=== PATIENT | female | born 1965 | race African-American/Black ===

== ENCOUNTER 2017-10-27 11:20 | Emergency (ER) | payer OTHER ==
[2017-10-27] MEDS ORDERED: predniSONE 20 MG TAB ONE (13:20)
[2017-10-27] MEDS ORDERED: IPRATROPIUM BROM 0.5MG/2.5ML ONE (13:20)
[2017-10-27] MEDS ORDERED: ALBUTEROL 2.5 MG/3 ML NEB SOL ONE (13:20)
--- NOTE | 2017-10-27 14:17 | ER ---
Nurse's Notes [facility] Name: Nini Carr Age: 51 yrs Sex: Female : 1965 Arrival Date: 10/27/2017 Time: 11:30 Bed DIS1 Private MD: None, None Diagnosis: Acute bronchitis;Otitis media, unspecified, bilateral Presentation: 10/27 11:35 Presenting complaint: Patient states: Sore throat, nasal congestion, SOB that started aj last night. Transition of care: patient was not received from another setting of care. Onset of symptoms was October 27, 2017. Initial Sepsis Screen: Does the patient meet any 2 criteria? No. Patient's initial sepsis screen is negative. Does the patient have a suspected source of infection? No. Patient's initial sepsis screen is negative. Care prior to arrival: None. 11:35 Method Of Arrival: Ambulatory aj 11:35 Acuity: LIV 3 aj Triage Assessment: 11:37 General: Appears in no apparent distress. uncomfortable, Behavior is calm, cooperative, aj appropriate for age. Pain: Complains of pain in left aspect of posterior pharynx and right aspect of posterior pharynx. EENT: Reports nasal congestion nasal discharge pain when swallowing. Neuro: Level of Consciousness is awake, alert, obeys commands, Oriented to person, place, time, situation, Appropriate for age. Respiratory: Airway is patent Respiratory effort is even, unlabored, Respiratory pattern is tachypnea Breath sounds with wheezes. Derm: Skin is intact, is healthy with good turgor, Skin is pink, warm \T\ dry. normal. 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 - Social history:: Smoking status: Patient/guardian denies using tobacco. Screenin:20 Abuse screen: Denies threats or abuse. Denies injuries from another. Nutritional lk1 screening: No deficits noted. Tuberculosis screening: No symptoms or risk factors identified. Fall Risk None identified. Assessment: 13:10 General: Appears in no apparent distress. Behavior is calm, cooperative, appropriate lk1 for age. Pain: Complains of pain in chest Pain currently is 8 out of 10 on a pain scale. Neuro: Level of Consciousness is awake, alert, obeys commands, Oriented to person, place, time, situation. Cardiovascular: Heart tones S1 S2 present Capillary refill is brisk Patient's skin is warm and dry. Respiratory: Airway is patent Respiratory effort is labored, with nasal flaring, Respiratory pattern is symmetrical, tachypnea Breath sounds are coarse in mediastinum Breath sounds with wheezes bilaterally. GI: Abdomen is obese, Bowel sounds present X 4 quads. : No signs and/or symptoms were reported regarding the genitourinary system. EENT: No signs and/or symptoms were reported regarding the EENT system. Derm: No signs and/or symptoms reported regarding the dermatologic system. Musculoskeletal: No signs and/or symptoms reported regarding the musculoskeletal system. 13:45 Reassessment: Patient states feeling better. Patient states symptoms have improved. lk1 Respiratory: Airway is patent Respiratory effort is even, unlabored, Respiratory pattern is regular, symmetrical, Breath sounds are clear in mediastinum, left upper lobe, right middle lobe, left lower lobe and right lower lobe Breath sounds with wheezes in right upper lobe. Vital Signs: 11:37 BP 147 / 103; Pulse 72; Resp 23; Temp 98.0; Pulse Ox 97% on R/A; Weight 113.4 kg; aj Height 5 ft. 6 in. (167.64 cm); Pain 8/10; 13:40 BP 160 / 98; Pulse 80; Resp 20; Pulse Ox 97% on R/A; lk1 11:37 Body Mass Index 40.35 (113.40 kg, 167.64 cm) aj ED Course: 11:30 Patient arrived in ED. mr 11:30 None, None is Private Physician. mr 11:36 Triage completed. aj 11:39 Arm band placed on left wrist. Patient placed in waiting room, Patient notified of wait aj time. 13:06 Deven Milan PA is PHCP. cp 13:06 Deven Vásquez MD is Attending Physician. cp 13:18 Elma Alexis, JOLIE is Primary Nurse. lk1 14:21 Patient has correct armband on for positive identification. Bed in low position. Call lk1 light in reach. 14:39 No provider procedures requiring assistance completed. Patient did not have IV access lk1 during this emergency room visit. Administered Medications: 13:25 Drug: predniSONE 60 mg Route: PO; lk1 14:26 Follow up: Response: No adverse reaction lk1 13:27 Drug: Albuterol 2.5 mg Route: Inhalation; lk1 13:45 Follow up: Response: No adverse reaction; Marked relief of symptoms lk1 13:27 Drug: AtroVENT Aerosol 0.5 mg Route: Inhalation; lk1 13:45 Follow up: Response: No adverse reaction lk1 Outcome: 14:16 Discharge ordered by . leonides 14:39 Discharged to home ambulatory. lk1 14:39 Condition: good 14:39 Discharge instructions given to patient, Instructed on discharge instructions, follow up and referral plans. medication usage, safety practices, Demonstrated understanding of instructions, follow-up care, medications, Prescriptions given X 3. 14:39 Patient left the ED. lk1 Signatures: Virginia Neves RN RN aj Rivera, Maria mr Deven Milan, Elma Rodrigues cp, RN RN lk1 Corrections: (The following items were deleted from the chart) 11:39 11:35 Acuity: LIV 4 jazmine lucero
--- NOTE | 2017-10-27 14:17 | EDPHYS ---
Physician Documentation [facility] Name: Nini Carr Age: 51 yrs Sex: Female : 1965 Arrival Date: 10/27/2017 Time: 11:30 Bed DIS1 Private MD: None, None ED Physician Deven Vásquez HPI: 10/27 13:20 This 51 yrs old Black Female presents to ER via Ambulatory with complaints of cp Congestion, Breathing Difficulty. 13:20 The patient or guardian reports cough, that is intermittent, with productive sputum. cp 13:20 Onset: The symptoms/episode began/occurred yesterday. Associated signs and symptoms: cp Pertinent positives: sore throat, Pertinent negatives: chest pain. 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 - Social history:: Smoking status: Patient/guardian denies using tobacco. ROS: 13:25 Constitutional: Negative for body aches, chills, fever, poor PO intake. cp 13:25 Eyes: Negative for injury, pain, redness, and discharge. cp 13:25 ENT: Positive for sore throat, Negative for drainage from ear(s), difficulty swallowing, difficulty handling secretions. 13:25 Neck: Negative for pain with movement, pain at rest, stiffness. 13:25 Cardiovascular: Negative for chest pain, edema, palpitations. 13:25 Respiratory: Positive for cough, "sounds productive", shortness of breath. 13:25 Abdomen/GI: Negative for abdominal pain, nausea, vomiting, and diarrhea. 13:25 Back: Negative for pain at rest, pain with movement, radiated pain. 13:25 Skin: Negative for cellulitis, rash. 13:25 Neuro: Negative for altered mental status, headache, syncope, near syncope, weakness. 13:25 All other systems are negative. Exam: 13:30 Constitutional: The patient appears in no acute distress, alert, awake, cp non-diaphoretic, non-toxic, well developed, well nourished. 13:30 Head/Face: Normocephalic, atraumatic. Eyes: Pupils equal round and reactive to light, cp extra-ocular motions intact. Lids and lashes normal. Conjunctiva and sclera are non-icteric and not injected. Cornea within normal limits. Periorbital areas with no swelling, redness, or edema. 13:30 ENT: External ear(s): are unremarkable, Ear canal(s): are normal, clear, TM's: dullness, bilaterally, Nose: is normal, Mouth: Lips: moist, Oral mucosa: moist, Posterior pharynx: Airway: no evidence of obstruction, patent, Tonsils: mild erythema, no enlargement, no exudate, Uvula: midline, swelling, is not appreciated, erythema, that is mild, exudate, is not appreciated, Voice: is normal. 13:30 Neck: ROM/movement: is normal, is supple, without pain, no range of motions limitations, no meningismus, no nuchal rigidity. 13:30 Chest/axilla: Inspection: normal, Palpation: is normal, no crepitus, no tenderness. 13:30 Cardiovascular: Rate: normal, Rhythm: regular, Edema: is not appreciated, JVD: is not appreciated. 13:30 Respiratory: the patient does not display signs of respiratory distress, Respirations: labored breathing, is not present, shallow respirations, are not present, splinting, is not noted, tachypnea, is not appreciated, Breath sounds: decreased breath sounds, are not appreciated, rhonchi, are not appreciated, stridor, is not appreciated, + upper airway congestion. wheezing: that is mild, is heard diffusely. 13:30 Abdomen/GI: Exam negative for discomfort, distension, guarding, Inspection: abdomen appears normal. 13:30 Back: pain, is absent, ROM is normal. 13:30 Skin: cellulitis, is not appreciated, no rash present. 13:30 Neuro: Orientation: to person, place \\T\\ time. Mentation: is normal, Cerebellar function: is grossly normal, Motor: moves all fours, strength is normal, Sensation: no obvious gross deficits. Vital Signs: 11:37 BP 147 / 103; Pulse 72; Resp 23; Temp 98.0; Pulse Ox 97% on R/A; Weight 113.4 kg; aj Height 5 ft. 6 in. (167.64 cm); Pain 8/10; 13:40 BP 160 / 98; Pulse 80; Resp 20; Pulse Ox 97% on R/A; lk1 11:37 Body Mass Index 40.35 (113.40 kg, 167.64 cm) aj MDM: 13:06 Patient medically screened. cp 14:15 Data reviewed: vital signs, nurses notes, lab test result(s), and as a result, I will cp discharge patient. 10/27 13:18 Order name: Influenza Screen (a \\T\\ B); Complete Time: 14:15 cp 10/27 13:18 Order name: Strep; Complete Time: 14:15 cp 10/27 13:59 Order name: Throat Culture EDMS 10/27 13:18 Order name: Urine Dipstick-Ancillary (obtain specimen); Complete Time: 13:37 cp 10/27 13:18 Order name: Urine Test (obtain specimen); Complete Time: 13:37 cp Administered Medications: 13:25 Drug: predniSONE 60 mg Route: PO; lk1 14:26 Follow up: Response: No adverse reaction lk1 13:27 Drug: Albuterol 2.5 mg Route: Inhalation; lk1 13:45 Follow up: Response: No adverse reaction; Marked relief of symptoms lk1 13:27 Drug: AtroVENT Aerosol 0.5 mg Route: Inhalation; lk1 13:45 Follow up: Response: No adverse reaction lk1 Disposition: 10/27/17 14:16 Discharged to Home. Impression: Acute bronchitis, Otitis media, unspecified, bilateral. - Condition is Stable. - Discharge Instructions: Acute Bronchitis, Otitis Media, Adult. - Prescriptions for Zithromax Z- Andre 250 mg Oral Tablet - take 1 tablet by ORAL route as directed for 5 days Day 1 - take two (2) tablets one time. Day 2, 3, 4 , 5 take one (1) tablet once daily.; 6 tablet. Prednisone 20 mg Oral Tablet - take 2 tablet by ORAL route once daily for 5 days start morning of 10-28-2017; 10 tablet. Tessalon Perles 100 mg Oral Capsule - take 1 capsule by ORAL route every 8 hours As needed; 15 capsule. - Medication Reconciliation Form, Thank You Letter, Antibiotic Education, Prescription Opioid Use form. - Follow up: Private Physician; When: 2 - 3 days; Reason: Recheck today's complaints. - Problem is new. - Symptoms have improved. Addendum: 10/30/2017 07:22 Co-signature as Attending Physician, Deven Vásquez MD I agree with the assessment and c aguilar plan of care. Signatures: Dispatcher [employer] Virginia Pierce, RN RN Deven Pleitez MD MD cha Page, Corey, PA PA cp Kluge, Leah, RN RN lk1
== END 2017-10-27 14:39 | disposition home or self-care (01) ==
LOC: ER 11:20
DX: J20.9 Acute bronchitis, unspecified (principal); H66.93 Otitis media, unspecified, bilateral
CPT/HCPCS: 87070; 87081; 87804; 99284; J7512

== ENCOUNTER 2018-06-19 11:16 | Emergency (ER) | payer OTHER ==
--- NOTE | 2018-06-19 12:14 | EDPHYS ---
Physician Documentation [facility] Name: Nini Carr Age: 52 yrs Sex: Female : 1965 Arrival Date: 06/19/2018 Time: 11:19 Bed 12 Private MD: Shon Capellan ED Physician Konstantin Troncoso HPI: 06/19 12:08 This 52 yrs old Black Female presents to ER via Ambulatory with complaints of tender gs area. 12:08 the patient presents with a swollen area of the right scapular area. Description: The gs affected area is small, approximately 3 cm(s), confluent. Onset: The symptoms/episode began/occurred 5 day(s) ago. Associated signs and symptoms: Pertinent negatives: drainage, erythema, fever. Modifying factors: the symptoms are aggravated by touching. Severity of symptoms: At their worst the symptoms were moderate, in the emergency department the symptoms are unchanged. The patient has experienced similar episodes in the past, a few times. The patient has not recently seen a physician. 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 - Social history:: Smoking status: Patient/guardian denies using tobacco, Patient/guardian denies using alcohol. - Ebola Screening: : Patient negative for fever greater than or equal to 101.5 degrees Fahrenheit, and additional compatible Ebola Virus Disease symptoms Patient denies exposure to infectious person Patient denies travel to an Ebola-affected area in the 21 days before illness onset. ROS: 12:08 All other systems are negative. gs Exam: 12:08 Chest/axilla: Normal chest wall appearance and motion. Nontender with no deformity. gs No lesions are appreciated. Cardiovascular: Regular rate and rhythm with a normal S1 and S2. No gallops, murmurs, or rubs. Normal PMI, no JVD. No pulse deficits. Respiratory: Lungs have equal breath sounds bilaterally, clear to auscultation and percussion. No rales, rhonchi or wheezes noted. No increased work of breathing, no retractions or nasal flaring. Back: No spinal tenderness. No costovertebral tenderness. Full range of motion. Neuro: Awake and alert, GCS 15, oriented to person, place, time, and situation. Cranial nerves II-XII grossly intact. Motor strength 5/5 in all extremities. Sensory grossly intact. Cerebellar exam normal. Normal gait. 12:08 Constitutional: The patient appears alert, awake. 12:08 Skin: abscess, that is small, of the right scapular area, firm mild tender sebaceous cyst no drainage induration or erythema. Vital Signs: 11:30 BP 151 / 87; Pulse 67; Resp 18; Temp 98.3(TE); Pulse Ox 100% on R/A; Weight 121.56 kg; hj Height 5 ft. 7 in. (170.18 cm); Pain 7/10; 11:30 Body Mass Index 41.97 (121.56 kg, 170.18 cm) MDM: 12:07 Patient medically screened. gs 12:08 Data reviewed: vital signs, nurses notes. ED course: pt good with plan to arrange for gs excision. Administered Medications: No medications were administered Disposition: 06/19/18 12:13 Discharged to Home. Impression: Sebaceous cyst. - Condition is Stable. - Discharge Instructions: Epidermal Cyst, [id number]. - Prescriptions for Keflex 500 mg Oral Capsule - take 1 capsule by ORAL route every 12 hours for 5 days; 10 capsule. - Medication Reconciliation Form, Thank You Letter, Antibiotic Education, Prescription Opioid Use form. - Follow up: Bhavesh Kidd MD; When: 2 - 3 days; Reason: Re-evaluation by your physician. Signatures: oRma Parker RN RN Bhavesh Moran RN RN Konstantin Troncoso MD MD Corrections: (The following items were deleted from the chart) 12:40 12:13 06/19/2018 12:13 Discharged to Home. Impression: Sebaceous cyst. Condition is iw Stable. Forms are Medication Reconciliation Form, Thank You Letter, Antibiotic Education, Prescription Opioid Use. Follow up: Bhavesh Kidd; When: 2 - 3 days; Reason: Re-evaluation by your physician. gs
--- NOTE | 2018-06-19 12:14 | ER ---
Nurse's Notes [facility] Name: Nini Carr Age: 52 yrs Sex: Female : 1965 Arrival Date: 06/19/2018 Time: 11:19 Bed 12 Private MD: Shon Capellan Diagnosis: Sebaceous cyst Presentation: 06/19 11:27 Presenting complaint: Patient states: i have a skin infection on my back that started hj last year and now the R side of my shoulder, R arm is hurting; denies fever and chills;. Transition of care: patient was not received from another setting of care. Onset of symptoms was June 19, 2018. Risk Assessment: Do you want to hurt yourself or someone else? Patient reports no desire to harm self or others. Initial Sepsis Screen: Does the patient meet any 2 criteria? No. Patient's initial sepsis screen is negative. Does the patient have a suspected source of infection? No. Patient's initial sepsis screen is negative. Care prior to arrival: None. 11:27 Method Of Arrival: Ambulatory 11:27 Acuity: LIV 4 Triage Assessment: 11:29 General: Appears in no apparent distress. uncomfortable, Behavior is cooperative, hj appropriate for age, anxious. Pain: Complains of pain in back Pain currently is 7 out of 10 on a pain scale. 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 - Social history:: Smoking status: Patient/guardian denies using tobacco, Patient/guardian denies using alcohol. - Ebola Screening: : Patient negative for fever greater than or equal to 101.5 degrees Fahrenheit, and additional compatible Ebola Virus Disease symptoms Patient denies exposure to infectious person Patient denies travel to an Ebola-affected area in the 21 days before illness onset. Screenin:30 Abuse screen: Denies threats or abuse. Denies injuries from another. Nutritional hj screening: No deficits noted. Tuberculosis screening: No symptoms or risk factors identified. Fall Risk None identified. Assessment: 12:00 General: Appears in no apparent distress. Behavior is calm, cooperative. Neuro: Level iw of Consciousness is awake, alert, obeys commands, Oriented to person, place, time, situation, Moves all extremities. Full function. Cardiovascular: Patient's skin is warm and dry. Respiratory: Respiratory effort is even, unlabored. Derm: Skin is intact, is healthy with good turgor. Musculoskeletal: Range of motion: intact in all extremities. Vital Signs: 11:30 BP 151 / 87; Pulse 67; Resp 18; Temp 98.3(TE); Pulse Ox 100% on R/A; Weight 121.56 kg; hj Height 5 ft. 7 in. (170.18 cm); Pain 710; 11:30 Body Mass Index 41.97 (121.56 kg, 170.18 cm) ED Course: 11:19 Patient arrived in ED. sb2 11:20 Shon Capellan MD is Private Physician. sb2 11:29 Triage completed. hj 11:30 Arm band placed on left wrist. hj 11:30 Patient has correct armband on for positive identification. Bed in low position. Call light in reach. Side rails up X 1. Adult w/ patient. 12:01 Konstantin Troncoso MD is Attending Physician. 12:13 Bhavesh Kidd MD is Referral Physician. 12:39 Roma Parker RN is Primary Nurse. iw 12:39 No provider procedures requiring assistance completed. Patient did not have IV access iw during this emergency room visit. Administered Medications: No medications were administered Outcome: 12:13 Discharge ordered by MD. gs 12:39 Discharged to home ambulatory, with family. iw 12:39 Condition: good 12:39 Discharge instructions given to patient, family, Instructed on discharge instructions, follow up and referral plans. medication usage, Demonstrated understanding of instructions, follow-up care, medications, Prescriptions given X 1. 12:40 Patient left the ED. iw Signatures: Roma Parker RN RN Bhavesh Moran RN RN Konstantin Troncoso MD MD Carrie Syed sb2 Corrections: (The following items were deleted from the chart) 11:32 11:30 Pulse 85bpm; Resp 18bpm; Pulse Ox 100% RA; Temp 98.3F Temporal; 121.56 kg; Height hj 5 ft. 7 in.; BMI: 41.9; Pain 7/10; hj
== END 2018-06-19 12:40 | disposition home or self-care (01) ==
LOC: ER 11:16
DX: L72.3 Sebaceous cyst (principal)
CPT/HCPCS: 99282

== ENCOUNTER 2018-08-21 07:58 | Emergency (ER) | payer OTHER ==
[2018-08-21] MEDS ORDERED: MEPERIDINE HCL 50 MG/ML AMP ONE (08:34)
[2018-08-21] MEDS ORDERED: PROMETHAZINE 25 MG/ML VIAL ONE (08:34)
[2018-08-21 08:39] LABS: Absolute Lymphocytes (CBC) 1.5 K/uL (0.7-4.9); Absolute Monocytes 0.6 K/uL (0.1-1.3); Absolute Neutrophil 4.3 K/uL (1.8-8.0); Eosinophils % 3.1 % (0-4.4); Hematocrit 44.5 % (36.0-45.0); MPV 8.9 fL (7.6-11.3); Monocytes % 8.8 % (3.3-12.3); RBC Red Blood Cell Count 5.13 M/uL (3.86-4.86)
[2018-08-21 09:01] LABS: Potassium 4.6 mmol/L (3.5-5.1)
--- NOTE | 2018-08-21 09:34 | RAD REPORT ---
EXAM DESCRIPTION: CT - Stone Protocol - 08/21/2018 9:00 am CLINICAL HISTORY: Back pain, leg pain COMPARISON: None. TECHNIQUE: Axial 5 mm thick images were obtained without oral or IV contrast. The [id number] span s the entirety of the system including uppermost abdomen and lung bases. All CT scans are performed using dose optimization technique as appropriate and may include automated exposure control or mA/KV adjustment according to patient size. FINDINGS: Motion degradation is present. No hydronephrosis is present and no obstructing ureteral calculi. No suspicious renal masses. Isodens e masses and pyelonephritis are not excluded on a stone protocol CT scan. No urinary bladder suspicio us finding. No significant adrenal finding. Imaged portions of the liver, spleen and pancreas show no suspicious findings on non-contrast imaging . No gallbladder or biliary tree abnormality identified. No suspicious bowel findings. No hernia, omental thickening or bulky lymphadenopathy. No free air, free fluid or inflammatory stran ding. A 15 x 12 centimeter macrolobulated soft tissue mass of the pelvis is believed to be an enlarged mult i fibroid uterus. There is no comparison. Ovaries are not uniquely identifiable and may be obscured b y the large uterus. An ovarian based process is unlikely. Noncontrast CT imaging is limited in assess ment of the uterus. No significant bony abnormality. IMPRESSION: No hydronephrosis, obstructing calculus or acute finding. Isodense masses and pyelonephritis are not excluded on stone protocol technique. No acute GI process identifiable. A 15 centimeter macrolobulated pelvic mass is almost certainly an enlarged multi fibroid uterus. Nonc ontrast CT is limited. Follow-up outpatient transabdominal/endovaginal sonography could be used for f urther characterization of the uterus.
[2018-08-21] MEDS ORDERED: HYDROMORPHONE HCL 1 MG/ML INJ ONE (10:00)
[2018-08-21] MEDS ORDERED: KETOROLAC 30 MG/ML INJ ONE (10:00)
[2018-08-21] MEDS ORDERED: DEXAMETHASONE 4 MG/ML VIAL ONE (10:01)
[2018-08-21] MEDS ORDERED: METHOCARBAMOL 1,000 MG in NA CHLORIDE 0.9% 100 ML IV ONE (10:15)
[2018-08-21 11:27] LABS: Urine Blood NEGATIVE (NEG); Urine Glucose NEGATIVE (NEG); Urine Protein NEGATIVE (NEG); Urine Specific Gravity 1.015 (1.005-1.030); Urine pH 6.5 (5.0-7.0)
--- NOTE | 2018-08-21 13:13 | EDPHYS ---
Physician Documentation [facility] Name: Nini Carr Age: 52 yrs Sex: Female : 1965 Arrival Date: 08/21/2018 Time: 08:00 Bed 17 Private MD: Shon Capellan ED Physician Konstantin Troncoso HPI: 08/21 09:03 This 52 yrs old Black Female presents to ER via Ambulatory with complaints of Back jr8 Pain, Leg Pain. 09:03 The patient presents with pain that is acute, with no known mechanism of injury. The jr8 symptoms are located in the low back. Onset: The symptoms/episode began/occurred acutely, 2 day(s) ago. Radiation down left buttock and leg. Associated signs and symptoms: The patient has no apparent associated signs or symptoms. The problem was sustained from unknown cause. Modifying factors: The patient symptoms are alleviated by nothing, the patient symptoms are aggravated by any movement, bending, lifting. Severity of symptoms: At their worst the symptoms were moderate, in the emergency department the symptoms are unchanged. The patient has experienced a previous episode. The patient has not recently seen a physician. Stated that she was doing routine house chores over the weekend. Started to have low back pain that has progressively become worse. Now having pain with any movement. Denies numbness, tingling, saddle anesthesia, bowel, or bladder incontinence. Has had this once before several years ago from work injury. Pain feels similar to that in past. 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 - Social history:: Smoking status: Patient/guardian denies using tobacco, Patient/guardian denies using alcohol. - Ebola Screening: : Patient negative for fever greater than or equal to 101.5 degrees Fahrenheit, and additional compatible Ebola Virus Disease symptoms Patient denies exposure to infectious person Patient denies travel to an Ebola-affected area in the 21 days before illness onset. ROS: 09:03 Eyes: Negative for injury, pain, redness, and discharge, ENT: Negative for injury, jr8 pain, and discharge, Neck: Negative for injury, pain, and swelling, Cardiovascular: Negative for chest pain, palpitations, and edema, Respiratory: Negative for shortness of breath, cough, wheezing, and pleuritic chest pain, Abdomen/GI: Negative for abdominal pain, nausea, vomiting, diarrhea, and constipation, MS/Extremity: Negative for injury and deformity, Skin: Negative for injury, rash, and discoloration, Neuro: Negative for headache, weakness, numbness, tingling, and seizure. 09:03 Back: Positive for pain at rest, pain with movement, radiated pain, of the low back area. Exam: 09:03 Eyes: Pupils equal round and reactive to light, extra-ocular motions intact. Lids and jr8 lashes normal. Conjunctiva and sclera are non-icteric and not injected. Cornea within normal limits. Periorbital areas with no swelling, redness, or edema. ENT: Nares patent. No nasal discharge, no septal abnormalities noted. Tympanic membranes are normal and external auditory canals are clear. Oropharynx with no redness, swelling, or masses, exudates, or evidence of obstruction, uvula midline. Mucous membranes moist. Neck: Trachea midline, no thyromegaly or masses palpated, and no cervical lymphadenopathy. Supple, full range of motion without nuchal rigidity, or vertebral point tenderness. No Meningismus. Chest/axilla: Normal chest wall appearance and motion. Nontender with no deformity. No lesions are appreciated. Cardiovascular: Regular rate and rhythm with a normal S1 and S2. No gallops, murmurs, or rubs. Normal PMI, no JVD. No pulse deficits. Respiratory: Lungs have equal breath sounds bilaterally, clear to auscultation and percussion. No rales, rhonchi or wheezes noted. No increased work of breathing, no retractions or nasal flaring. Abdomen/GI: Soft, non-tender, with normal bowel sounds. No distension or tympany. No guarding or rebound. No evidence of tenderness throughout. Skin: Warm, dry with normal turgor. Normal color with no rashes, no lesions, and no evidence of cellulitis. MS/ Extremity: Pulses equal, no cyanosis. Neurovascular intact. Full, normal range of motion. Neuro: Awake and alert, GCS 15, oriented to person, place, time, and situation. Cranial nerves II-XII grossly intact. Motor strength 5/5 in all extremities. Sensory grossly intact. Cerebellar exam normal. Normal gait. 09:03 Back: pain, that is moderate, of the low back area, ROM is painful, normal spinal alignment noted, CVA tenderness, is absent, vertebral tenderness, is not appreciated. Vital Signs: 08:10 BP 200 / 142; Pulse 104; Resp 18; Temp 98.4(TE); Pulse Ox 98% on R/A; Weight 113.4 kg; hj Height 5 ft. 6 in. (167.64 cm); Pain 10/10; 09:41 BP 175 / 114; Pulse 85; Resp 18; Pulse Ox 97% on R/A; hj 10:33 BP 188 / 98; Pulse 67; Resp 18; Pulse Ox 97% on R/A; hj 11:09 BP 169 / 93; Pulse 65; Resp 18; Pulse Ox 100% on R/A; hj 11:51 BP 137 / 91; Pulse 67; Resp 18; Pulse Ox 100% on R/A; hj 12:10 BP 161 / 98; Pulse 65; Resp 18; Pulse Ox 100% on R/A; hj 13:21 BP 162 / 95; Pulse 66; Resp 18; Pulse Ox 100% on R/A; hj 08:10 Body Mass Index 40.35 (113.40 kg, 167.64 cm) MDM: 08:01 Patient medically screened. jr8 13:10 Data reviewed: vital signs, nurses notes, lab test result(s), radiologic studies, CT jr8 scan. Data interpreted: Pulse oximetry: on room air is 100 %. Interpretation: normal. Counseling: I had a detailed discussion with the patient and/or guardian regarding: the historical points, exam findings, and any diagnostic results supporting the discharge/admit diagnosis, lab results, radiology results, the need for outpatient follow up, a neurosurgeon, to return to the emergency department if symptoms worsen or persist or if there are any questions or concerns that arise at home. Response to treatment: the patient's symptoms have markedly improved after treatment. ED course: After second dosing patient was able to rest and has only minimal pain now. Feels much better and wants to go home. No Acute neurologic deficit present on initial or reexamination. Patient understands that she needs to f/u with neurosurgery to further examen for herniation or bulging disc. Otherwise she needs rest with no heavy lifting. Patient is good with this plan and will f/u. 08/21 08:17 Order name: CBC with Diff; Complete Time: 08:47 08/21 08:17 Order name: Basic Metabolic Panel; Complete Time: 09:03 08/21 08:37 Order name: CT Stone Protocol; Complete Time: 09:35 [facility] 08/21 09:27 Order name: Urine Dipstick--Ancillary (enter results); Complete Time: 11:32 eb 08/21 08:16 Order name: IV; Complete Time: 08:17 08/21 08:19 Order name: Urine Dipstick-Ancillary (obtain specimen); Complete Time: 09:27 Administered Medications: 08:33 Drug: Demerol 50 mg Route: IVP; Site: left hand; hj 09:00 Follow up: Response: No adverse reaction; Pain is decreased hj 08:33 Drug: Promethazine 12.5 mg Route: IVP; Site: left hand; hj 09:01 Follow up: Response: No adverse reaction; Nausea is decreased hj 09:46 Drug: TORadol 30 mg Route: IVP; Site: left hand; hj 10:20 Follow up: Response: No adverse reaction hj 09:46 Drug: Decadron - Dexamethasone 10 mg Route: IVP; Site: left hand; hj 10:20 Follow up: Response: No adverse reaction hj 09:46 Drug: Dilaudid 1 mg Route: IVP; Site: left hand; hj 10:20 Follow up: Response: No adverse reaction; Pain is decreased hj 10:19 Drug: Robaxin 1 grams Route: IVPB; Infused Over: 1 hrs; Site: left hand; hj 11:00 Follow up: IV Status: Completed infusion; IV Intake: 100ml Disposition: 14:02 Co-signature as Attending Physician, Konstantin Troncoso MD. Disposition: 08/21/18 13:12 Discharged to Home. Impression: Low back pain, Radiculopathy, lumbar region. - Condition is Stable. - Discharge Instructions: Back Pain, Adult, Lumbosacral Radiculopathy, Back Exercises, [id number], Heat Therapy. - Prescriptions for Ibuprofen 800 mg Oral Tablet - take 1 tablet by ORAL route every 12 hours As needed take with food; 20 tablet. Tylenol- Codeine #3 300-30 mg Oral Tablet - take 2 tablets by ORAL route every 6 hours As needed; 20 tablet. Zanaflex 4 mg Oral Tablet - take 1 tablet by ORAL route every 8 hours As needed; 20 tablet. Medrol (Andre) 4 mg Oral Tablets, Dose Pack - take 1 tablet by ORAL route as directed - follow package instructions; 1 packet. - Medication Reconciliation Form, Thank You Letter, Antibiotic Education, Prescription Opioid Use form. - Follow up: Private Physician; When: 2 - 3 days; Reason: Recheck today's complaints, Continuance of care, Re-evaluation by your physician. - Problem is new. - Symptoms have improved. Signatures: Dispatcher [employer] EDMS Kwabena Stanley PA PA jr8 Bhavesh Mroan RN RN Konstantni Santos MD MD gs Corrections: (The following items were deleted from the chart) 13:26 13:12 08/21/2018 13:12 Discharged to Home. Impression: Low back pain; Radiculopathy, hj lumbar region. Condition is Stable. Forms are Medication Reconciliation Form, Thank You Letter, Antibiotic Education, Prescription Opioid Use. Follow up: Private Physician; When: 2 - 3 days; Reason: Recheck today's complaints, Continuance of care, Re-evaluation by your physician. Problem is new. Symptoms have improved. jr8
--- NOTE | 2018-08-21 13:13 | ER ---
Nurse's Notes [facility] Name: Nini Carr Age: 52 yrs Sex: Female : 1965 Arrival Date: 08/21/2018 Time: 08:00 Bed 17 Private MD: Shon Capellan Diagnosis: Low back pain;Radiculopathy, lumbar region Presentation: 08/21 08:06 Presenting complaint: Patient states: my lower back, butt area, both thigh's hurting hj since yesterday, denies trauma to the area; denies N/V; denies F/C; took tylenol codeine #3;. Transition of care: patient was not received from another setting of care. Onset of symptoms was August 21, 2018. Risk Assessment: Do you want to hurt yourself or someone else? Patient reports no desire to harm self or others. Initial Sepsis Screen: Does the patient meet any 2 criteria? No. Patient's initial sepsis screen is negative. Does the patient have a suspected source of infection? No. Patient's initial sepsis screen is negative. Care prior to arrival: None. 08:06 Method Of Arrival: Ambulatory 08:06 Acuity: LIV 3 hj Triage Assessment: 08:08 General: Appears in no apparent distress. uncomfortable, Behavior is calm, cooperative, hj appropriate for age. Pain: Complains of pain in back, buttocks, right leg and left leg. EENT: No signs and/or symptoms were reported regarding the EENT system. Neuro: Level of Consciousness is awake, alert, obeys commands, Oriented to person, place, time, situation, Appropriate for age. Cardiovascular: Capillary refill < 3 seconds Patient's skin is warm and dry. Respiratory: Airway is patent Respiratory effort is even, unlabored, Respiratory pattern is regular, symmetrical. GI: No signs and/or symptoms were reported involving the gastrointestinal system. : No signs and/or symptoms were reported regarding the genitourinary system. Derm: No signs and/or symptoms reported regarding the dermatologic system. Musculoskeletal: Circulation, motion, and sensation intact. Capillary refill < 3 seconds, Range of motion: intact in all extremities. 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 - Social history:: Smoking status: Patient/guardian denies using tobacco, Patient/guardian denies using alcohol. - Ebola Screening: : Patient negative for fever greater than or equal to 101.5 degrees Fahrenheit, and additional compatible Ebola Virus Disease symptoms Patient denies exposure to infectious person Patient denies travel to an Ebola-affected area in the 21 days before illness onset. Screenin:09 Abuse screen: Denies threats or abuse. Denies injuries from another. Nutritional hj screening: No deficits noted. Tuberculosis screening: No symptoms or risk factors identified. Fall Risk None identified. Assessment: 08:11 Reassessment: see triage for assessment;. hj 08:59 Reassessment: wheeled to CT;. hj 10:33 Reassessment: awaiting results and POc;. hj 12:10 Reassessment: awaiting POC;. hj Vital Signs: 08:10 BP 200 / 142; Pulse 104; Resp 18; Temp 98.4(TE); Pulse Ox 98% on R/A; Weight 113.4 kg; hj Height 5 ft. 6 in. (167.64 cm); Pain 10/10; 09:41 BP 175 / 114; Pulse 85; Resp 18; Pulse Ox 97% on R/A; hj 10:33 BP 188 / 98; Pulse 67; Resp 18; Pulse Ox 97% on R/A; hj 11:09 BP 169 / 93; Pulse 65; Resp 18; Pulse Ox 100% on R/A; hj 11:51 BP 137 / 91; Pulse 67; Resp 18; Pulse Ox 100% on R/A; hj 12:10 BP 161 / 98; Pulse 65; Resp 18; Pulse Ox 100% on R/A; hj 13:21 BP 162 / 95; Pulse 66; Resp 18; Pulse Ox 100% on R/A; hj 08:10 Body Mass Index 40.35 (113.40 kg, 167.64 cm) ED Course: 08:00 Patient arrived in ED. rg4 08:01 Kwabena Stanley PA is PHCP. jr8 08:01 Konstantin Troncoso MD is Attending Physician. jr8 08:02 Shon Capellan MD is Private Physician. rg4 08:05 Bhavesh Moran, JOLIE is Primary Nurse. hj 08:07 Triage completed. hj 08:10 Arm band placed on right wrist. hj 08:10 Patient has correct armband on for positive identification. Placed in gown. Bed in low hj position. Call light in reach. Side rails up X 1. Adult w/ patient. 08:34 Basic Metabolic Panel Sent. hj 08:34 CBC with Diff Sent. hj 08:34 Initial lab(s) drawn, by me, sent to lab. Inserted saline lock: 22 gauge in left hand, hj using aseptic technique. Blood collected. 09:01 CT Stone Protocol In Process Unspecified. EDMS 09:06 CT completed. Patient tolerated procedure well. Patient moved back from [facility] 13:21 No provider procedures requiring assistance completed. IV discontinued, intact, hj bleeding controlled, No redness/swelling at site. Pressure dressing applied. Administered Medications: 08:33 Drug: Demerol 50 mg Route: IVP; Site: left hand; hj 09:00 Follow up: Response: No adverse reaction; Pain is decreased hj 08:33 Drug: Promethazine 12.5 mg Route: IVP; Site: left hand; hj 09:01 Follow up: Response: No adverse reaction; Nausea is decreased hj 09:46 Drug: TORadol 30 mg Route: IVP; Site: left hand; hj 10:20 Follow up: Response: No adverse reaction hj 09:46 Drug: Decadron - Dexamethasone 10 mg Route: IVP; Site: left hand; hj 10:20 Follow up: Response: No adverse reaction hj 09:46 Drug: Dilaudid 1 mg Route: IVP; Site: left hand; hj 10:20 Follow up: Response: No adverse reaction; Pain is decreased hj 10:19 Drug: Robaxin 1 grams Route: IVPB; Infused Over: 1 hrs; Site: left hand; hj 11:00 Follow up: IV Status: Completed infusion; IV Intake: 100ml hj Intake: 11:00 IV: 100ml; Total: 100ml. hj Outcome: 13:12 Discharge ordered by . jr8 13:21 Discharged to home ambulatory, with family. hj 13:21 Condition: stable 13:21 Discharge instructions given to patient, family, Instructed on discharge instructions, follow up and referral plans. medication usage, Demonstrated understanding of instructions, follow-up care, medications, Prescriptions given X 4. 13:26 Patient left the ED. hj Signatures: Dispatcher [employer] EDMS Reba Green mh1 Kwabena Stanley PA PA jr8 Bhavesh Moran RN RN Hue Lucas rg4 Corrections: (The following items were deleted from the chart) 08:17 08:10 BP 200 / 142; Pulse 104bpm; Resp 18bpm; Pulse Ox 98% RA; 113.4 kg; Height 5 ft. 6 hj in.; BMI: 40.3; Pain 10/10; hj 09:44 09:41 BP 175 / 114; Resp 18bpm; Pulse Ox 97% RA; hj hj
== END 2018-08-21 13:26 | disposition home or self-care (01) ==
LOC: ER 07:58
DX: M54.16 Radiculopathy, lumbar region (principal); I10 Essential (primary) hypertension
CPT/HCPCS: 36415; 74176; 76377; 80048; 81003; 85025; 96365; 96375; 99284; J1170; J2175; J2550; J2800

== ENCOUNTER 2019-02-28 16:17 | Emergency (ER) | payer OTHER ==
--- NOTE | 2019-02-28 18:21 | EDPHYS ---
Physician Documentation [facility] Name: Nini Carr Age: 53 yrs Sex: Female : 1965 Arrival Date: 02/28/2019 Time: 16:26 Bed 12 Private MD: ED Physician Tom Case HPI: 02/28 19:10 This 53 yrs old Black Female presents to ER via Ambulatory with complaints of Back kb Pain, Leg Pain. 19:10 The patient presents with pain that is acute, with no known mechanism of injury. The kb symptoms are located in the right low back. Onset: The symptoms/episode began/occurred last week. The pain radiates to the right leg. Associated signs and symptoms: The patient has no apparent associated signs or symptoms. The problem was sustained without known cause. Modifying factors: The patient symptoms are alleviated by nothing, the patient symptoms are aggravated by any movement. Severity of symptoms: At their worst the symptoms were moderate, in the emergency department the symptoms are unchanged. The patient has not experienced similar symptoms in the past. The patient has not recently seen a physician. also c/o right calf tenderness, "like a vein popped or something". Historical: - Allergies: 16:31 No Known Allergies; la1 - PMHx: 16:31 Diabetes - NIDDM; Hypertension; la1 - Immunization history:: Adult Immunizations up to date. - Social history:: Smoking status: Patient/guardian denies using tobacco. - Ebola Screening: : No symptoms or risks identified at this time. ROS: 19:12 Constitutional: Negative for fever, chills, and weight loss, Cardiovascular: Negative kb for chest pain, palpitations, and edema, Respiratory: Negative for shortness of breath, cough, wheezing, and pleuritic chest pain, Abdomen/GI: Negative for abdominal pain, nausea, vomiting, diarrhea, and constipation, MS/Extremity: Negative for injury and deformity, Skin: Negative for injury, rash, and discoloration, Neuro: Negative for headache, weakness, numbness, tingling, and seizure. 19:12 Back: Positive for pain at rest, pain with movement, radiated pain. Exam: 19:14 Constitutional: This is a well developed, well nourished patient who is awake, alert, kb and in no acute distress. Head/Face: Normocephalic, atraumatic. Chest/axilla: Normal chest wall appearance and motion. Nontender with no deformity. No lesions are appreciated. Cardiovascular: Regular rate and rhythm with a normal S1 and S2. No gallops, murmurs, or rubs. Normal PMI, no JVD. No pulse deficits. Respiratory: Lungs have equal breath sounds bilaterally, clear to auscultation and percussion. No rales, rhonchi or wheezes noted. No increased work of breathing, no retractions or nasal flaring. Abdomen/GI: Soft, non-tender, with normal bowel sounds. No distension or tympany. No guarding or rebound. No evidence of tenderness throughout. Skin: Warm, dry with normal turgor. Normal color with no rashes, no lesions, and no evidence of cellulitis. MS/ Extremity: Pulses equal, no cyanosis. Neurovascular intact. Full, normal range of motion. Neuro: Awake and alert, GCS 15, oriented to person, place, time, and situation. Cranial nerves II-XII grossly intact. Motor strength 5/5 in all extremities. Sensory grossly intact. Cerebellar exam normal. Normal gait. 19:14 Back: pain, that is moderate, of the right low back, ROM is painful, normal spinal alignment noted. 19:15 Neuro: Exam negative for acute changes. kb Vital Signs: 16:30 BP 177 / 115; Pulse 75; Resp 16; Temp 97.6; Pulse Ox 98% on R/A; Weight 113.4 kg; la1 Height 5 ft. 6 in. (167.64 cm); 16:30 Body Mass Index 40.35 (113.40 kg, 167.64 cm) la1 MDM: 16:47 Patient medically screened. kb 19:08 Data reviewed: vital signs, nurses notes. Data interpreted: Pulse oximetry: on room air kb is 98 %. Interpretation: normal. Counseling: I had a detailed discussion with the patient and/or guardian regarding: the historical points, exam findings, and any diagnostic results supporting the discharge/admit diagnosis, the need for outpatient follow up, a family practitioner, to return to the emergency department if symptoms worsen or persist or if there are any questions or concerns that arise at home. 02/28 17:22 Order name: US Extremity Venous Unilateral Ltd kb Administered Medications: No medications were administered Disposition: 08/21/19 18:19 Discharged to Home. Impression: Sciatica, right side. - Condition is Stable. - Discharge Instructions: Sciatica, [id number], Back Exercises, [id number]. - Prescriptions for Cyclobenzaprine 10 mg Oral Tablet - take 1 tablet by ORAL route every 8 hours As needed; 21 tablet. Diclofenac Sodium 75 mg Oral Tablet, Delayed Release (E.C.) - take 1 tablet by ORAL route 2 times per day As needed; 30 tablet. - Medication Reconciliation Form, Thank You Letter, Antibiotic Education, Prescription Opioid Use form. - Follow up: Emergency Department; When: As needed; Reason: Worsening of condition. Follow up: Private Physician; When: 2 - 3 days; Reason: Recheck today's complaints, Continuance of care, Re-evaluation by your physician. Signatures: Dispatcher [employer] EDHannah Garner, TELETRAY OPERATOR-C TELETRAY OPERATOR-Waib Neftali Stephen RN RN la1 Corrections: (The following items were deleted from the chart) 18:27 18:19 02/28/2019 18:19 Discharged to Home. Impression: Sciatica, right side. Condition la1 is Stable. Forms are Medication Reconciliation Form, Thank You Letter, Antibiotic Education, Prescription Opioid Use. Follow up: Emergency Department; When: As needed; Reason: Worsening of condition. Follow up: Private Physician; When: 2 - 3 days; Reason: Recheck today's complaints, Continuance of care, Re-evaluation by your physician. kb
--- NOTE | 2019-02-28 18:21 | ER ---
Nurse's Notes [facility] Name: Nini Carr Age: 53 yrs Sex: Female : 1965 Arrival Date: 02/28/2019 Time: 16:26 Bed 12 Private MD: Diagnosis: Sciatica, right side Presentation: 02/28 16:31 Presenting complaint: Patient states: I have chronic back pain that usually involves my la1 left leg but it has been in my right leg lately and I feel like something popped back there. Transition of care: patient was not received from another setting of care. Onset of symptoms was February 28, 2019. Risk Assessment: Do you want to hurt yourself or someone else? Patient reports no desire to harm self or others. Initial Sepsis Screen: Does the patient meet any 2 criteria? No. Patient's initial sepsis screen is negative. Does the patient have a suspected source of infection? No. Patient's initial sepsis screen is negative. Care prior to arrival: None. 16:31 Method Of Arrival: Ambulatory la1 16:31 Acuity: LIV 3 la1 Historical: - Allergies: 16:31 No Known Allergies; la1 - PMHx: 16:31 Diabetes - NIDDM; Hypertension; la1 - Immunization history:: Adult Immunizations up to date. - Social history:: Smoking status: Patient/guardian denies using tobacco. - Ebola Screening: : No symptoms or risks identified at this time. Screenin:43 Abuse screen: Denies threats or abuse. Nutritional screening: No deficits noted. la1 Tuberculosis screening: No symptoms or risk factors identified. Fall Risk None identified. Assessment: 16:43 General: Appears in no apparent distress. Behavior is calm, cooperative. Pain: la1 Complains of pain in right leg. Neuro: Level of Consciousness is awake, alert, obeys commands, Oriented to person, place, time, situation, Air Antisubmarine Officer are equal bilaterally. Cardiovascular: Capillary refill < 3 seconds Patient's skin is warm and dry. Respiratory: Airway is patent Respiratory effort is even, unlabored, Respiratory pattern is regular, symmetrical. GI: No signs and/or symptoms were reported involving the gastrointestinal system. : No signs and/or symptoms were reported regarding the genitourinary system. Vital Signs: 16:30 BP 177 / 115; Pulse 75; Resp 16; Temp 97.6; Pulse Ox 98% on R/A; Weight 113.4 kg; la1 Height 5 ft. 6 in. (167.64 cm); 16:30 Body Mass Index 40.35 (113.40 kg, 167.64 cm) la1 ED Course: 16:26 Patient arrived in ED. mr 16:31 Arm band placed on left wrist. la1 16:32 Triage completed. la1 16:43 Neftali Stephen, RN is Primary Nurse. la1 16:43 Patient has correct armband on for positive identification. la1 16:43 No provider procedures requiring assistance completed. Patient did not have IV access la1 during this emergency room visit. 16:47 [facility] Berry [facility]-C [facility]. kb 16:47 Tom Case MD is Attending Physician. kb 18:31 US Extremity Venous Unilateral Ltd In Process Unspecified. EDMS Administered Medications: No medications were administered Outcome: 18:19 Discharge ordered by MD. kb 18:27 Discharged to home ambulatory. la1 18:27 Condition: stable 18:27 Discharge instructions given to patient, Instructed on discharge instructions, follow up and referral plans. medication usage, Demonstrated understanding of instructions, follow-up care, medications, Prescriptions given X 2. 18:27 Patient left the ED. la1 Signatures: Dispatcher [employer] EDMS Hannah Berry FNP-C FNP-Ckb Rivera, Mary mr Neftali Stephen, RN RN la1
--- NOTE | 2019-02-28 18:41 | RAD REPORT ---
EXAM DESCRIPTION: USExtremlynn Venous Uni Ltd02/28/2019 6:31 pm CLINICAL HISTORY: Right leg pain and swelling. COMPARISON: None. FINDINGS: Right common femoral, superficial femoral, popliteal and right posterior tibial veins are compressible and demonstrate augmentation. Doppler demonstrates good flow. IMPRESSION: No evidence of deep venous thrombosis involving the right lower extremity.
== END 2019-02-28 18:27 | disposition home or self-care (01) ==
LOC: ER 16:17
DX: M54.31 Sciatica, right side (principal)
CPT/HCPCS: 93971; 99283

== ENCOUNTER 2019-06-29 11:46 | Emergency (ER) | payer OTHER ==
[2019-06-29] MEDS ORDERED: HYDROCODONE/APAP 5/325 MG TAB ONE (12:45)
[2019-06-29] MEDS ORDERED: IBUPROFEN 200 MG TAB PO ONE (12:49)
--- NOTE | 2019-06-29 13:30 | RAD REPORT ---
EXAM DESCRIPTION: RAD - Tib Fib Right - 06/29/2019 1:10 pm CLINICAL HISTORY: Left lower extremity pain, leg wound COMPARISON: None. FINDINGS: No fracture is identified. There is no dislocation or periosteal reaction noted. No acute or suspicious bony finding. Spurring is seen at the quadriceps tendon attachment and patella tendon o rigin. No foreign body or other soft tissue abnormality. IMPRESSION: Negative right tibia & fibula examination for acute or significant finding.
--- NOTE | 2019-06-29 13:44 | ER ---
Nurse's Notes [facility] Name: Nini Carr Age: 53 yrs Sex: Female : 1965 Arrival Date: 06/29/2019 Time: 11:48 Bed 12 Private MD: Diagnosis: Cellulitis of the Right Lower Extremity Presentation: 06/29 12:04 Presenting complaint: Patient states: went crabbing last week, fell into water, scraped iw up her hands, legs, has a painful knot on right aguirre since accident, thinks there is a piece of shell under the skin. Transition of care: patient was not received from another setting of care. Complicating Factors: Glass or an other foreign body is present in the wound. Onset of symptoms was June 22, 2019. Risk Assessment: Do you want to hurt yourself or someone else? Patient reports no desire to harm self or others. Initial Sepsis Screen: Does the patient meet any 2 criteria? No. Patient's initial sepsis screen is negative. Does the patient have a suspected source of infection? No. Patient's initial sepsis screen is negative. Care prior to arrival: None. 12:04 Method Of Arrival: Ambulatory iw 12:04 Acuity: LIV 4 iw CHECK CLERK: 12:06 LMP N/A - Irregular menses iw Historical: - Allergies: 12:06 Demerol; iw - PMHx: 12:06 Diabetes - NIDDM; Hypertension; Thyroid problem; iw - PSHx: 12:06 Thyroidectomy; iw - Immunization history:: Adult Immunizations Last tetanus immunization: < 10 years ago. - Social history:: Smoking status: Patient/guardian denies using tobacco. - Ebola Screening: : Patient negative for fever greater than or equal to 101.5 degrees Fahrenheit, and additional compatible Ebola Virus Disease symptoms Patient denies exposure to infectious person Patient denies travel to an Ebola-affected area in the 21 days before illness onset No symptoms or risks identified at this time. Screenin:22 Abuse screen: Denies threats or abuse. Denies injuries from another. Nutritional iw screening: No deficits noted. Tuberculosis screening: No symptoms or risk factors identified. Fall Risk Fall in past 12 months (25 points). Assessment: 12:21 General: Appears in no apparent distress. Behavior is calm, cooperative. Pain: iw Complains of pain in right aguirre. Neuro: Level of Consciousness is awake, alert, obeys commands, Oriented to person, place, time, situation, Moves all extremities. Full function. Musculoskeletal: Range of motion: intact in all extremities. Injury Description: Laceration is superficial, 0.5 to 2.5 cm long, not bleeding, was sustained 12-24 hours ago. Vital Signs: 12:06 BP 165 / 93; Pulse 75; Resp 18; Temp 98.0; Pulse Ox 97% on R/A; Weight 116.12 kg; iw Height 5 ft. 5 in. (165.10 cm); Pain 8; 12:06 Body Mass Index 42.60 (116.12 kg, 165.10 cm) iw ED Course: 11:48 Patient arrived in ED. mr 12:05 Triage completed. iw 12:06 Arm band placed on. iw 12:10 Keith Crook PA is PHCP. jmm 12:10 Tom Case MD is Attending Physician. jmm 12:20 Roma Parker, JOLIE is Primary Nurse. iw 12:25 Patient has correct armband on for positive identification. iw 13:10 X-ray completed. Portable x-ray completed in exam room. Patient tolerated procedure mh1 well. 13:11 Tib Fib Right XRAY In Process Unspecified. EDMS 13:43 Lion Tran MD is Referral Physician. [facility] 14:00 No provider procedures requiring assistance completed. Patient did not have IV access iw during this emergency room visit. Administered Medications: 12:50 Not Given (Patient Refused): Holt 5 mg-325 mg 1 tabs PO once; RASS on ADMIN: Combtv4, iw Very Agttd3, Agttd2, Rstlss1, AlertClm0, Drwsy-1, Lt Sdtn-2, Mod Sdtn-3, Dp Sdtn-4, UnArsble-5 12:51 Drug: Motrin 600 mg Route: PO; iw Outcome: 13:44 Discharge ordered by . jmm 14:00 Discharged to home ambulatory, with family. iw 14:00 Condition: good 14:00 Discharge instructions given to patient, family, Instructed on discharge instructions, follow up and referral plans. medication usage, Demonstrated understanding of instructions, follow-up care, medications, Prescriptions given X 2. 14:01 Patient left the ED. iw Signatures: Dispatcher [employer] Keith Rivas PA PA jmm Rivera, Liss mr Reba Green [facility] Roma Parker, RN RN
--- NOTE | 2019-06-29 13:44 | EDPHYS ---
Physician Documentation [facility] Name: Nini Carr Age: 53 yrs Sex: Female : 1965 Arrival Date: 06/29/2019 Time: 11:48 Bed 12 Private MD: ED Physician Tom Case HPI: 06/29 13:12 This 53 yrs old Black Female presents to ER via Ambulatory with complaints of Leg Pain, jmm Laceration To Leg. 13:12 The patient presents with an injury, pain. Onset: The symptoms/episode began/occurred jmm acutely, 1 week(s) ago. Modifying factors: The symptoms are alleviated by nothing. the symptoms are aggravated by nothing. Associated signs and symptoms: Pertinent negatives fever. This is a 53 year old female with a history of dm, htn, that presents to the ED with complaints of right lower leg pain and swelling beginning approx 1 week ago. Patient states she fell into oyster shells. Denies fever. . 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 - Social history:: Smoking status: Patient/guardian denies using tobacco. - Ebola Screening: : Patient negative for fever greater than or equal to 101.5 degrees Fahrenheit, and additional compatible Ebola Virus Disease symptoms Patient denies exposure to infectious person Patient denies travel to an Ebola-affected area in the 21 days before illness onset No symptoms or risks identified at this time. ROS: 13:12 Constitutional: Negative for fever, chills, and weight loss, Cardiovascular: Negative jmm for chest pain, palpitations, and edema, Respiratory: Negative for shortness of breath, cough, wheezing, and pleuritic chest pain, Abdomen/GI: Negative for abdominal pain, nausea, vomiting, diarrhea, and constipation. 13:12 MS/extremity: Positive for pain, swelling. 13:12 All other systems are negative. Exam: 13:12 Constitutional: This is a well developed, well nourished patient who is awake, alert, jmm and in no acute distress. Head/Face: atraumatic. Eyes: EOMI, no conjunctival erythema appreciated ENT: Moist Mucus Membranes Neck: Trachea midline, Supple Chest/axilla: Normal chest wall appearance and motion. Cardiovascular: Regular rate and rhythm. No edema appreciated Respiratory: Normal respirations, no respiratory distress appreciated Abdomen/GI: Non distended, soft Back: Normal ROM 13:12 Musculoskeletal/extremity: swelling to the right lower leg, TTP. 13:12 Skin: swelling noted to the right lower leg. 13:12 Neuro: Orientation: is normal, Mentation: is normal, Memory: is normal. 13:12 Psych: Behavior/mood is pleasant, cooperative. Vital Signs: 12:06 BP 165 / 93; Pulse 75; Resp 18; Temp 98.0; Pulse Ox 97% on R/A; Weight 116.12 kg; iw Height 5 ft. 5 in. (165.10 cm); Pain 8/10; 12:06 Body Mass Index 42.60 (116.12 kg, 165.10 cm) iw MDM: 12:17 Patient medically screened. [facility] 13:39 Data reviewed: vital signs, nurses notes. Counseling: I had a detailed discussion with kasia the patient and/or guardian regarding: the historical points, exam findings, and any diagnostic results supporting the discharge/admit diagnosis, the need for outpatient follow up, to return to the emergency department if symptoms worsen or persist or if there are any questions or concerns that arise at home. ED course: right lower extremity is ttp, warm, anteriorly. I do not suspect DVT. Will treat for cellulitis and the patient is given strict return precautions. Patient understood and agrees with the plan of care. . 06/29 12:22 Order name: Tib Fib Right XRAY; Complete Time: 13:57 [facility] Administered Medications: 12:50 Not Given (Patient Refused): [place] 5 mg-325 mg 1 tabs PO once; RASS on ADMIN: Combtv4, iw Very Agttd3, Agttd2, Rstlss1, AlertClm0, Drwsy-1, Lt Sdtn-2, Mod Sdtn-3, Dp Sdtn-4, UnArsble-5 12:51 Drug: Motrin 600 mg Route: PO; iw Disposition: 15:00 Co-signature as Attending Physician, Tom Case MD. rn Disposition: 06/29/19 13:44 Discharged to Home. Impression: Cellulitis of the Right Lower Extremity. - Condition is Stable. - Discharge Instructions: Cellulitis, Adult. - Prescriptions for Augmentin 875- 125 mg Oral Tablet - take 1 tablet by ORAL route every 12 hours for 10 days; 20 tablet. Ultracet 37.5- 325 mg Oral Tablet - take 1 tablet by ORAL route every 6 hours - for up to 5 days; do not exceed 8 tablets per day.; 12 tablet. Doxycycline Hyclate 100 mg Oral Tablet - take 1 tablet by ORAL route every 12 hours; 20 tablet. - Medication Reconciliation Form, Thank You Letter, Antibiotic Education, Prescription Opioid Use form. - Follow up: Private Physician; When: 2 - 3 days; Reason: Recheck today's complaints, Continuance of care, Re-evaluation by your physician. Follow up: Lion Tran MD; When: 2 - 3 days; Reason: Recheck today's complaints, Continuance of care, Re-evaluation by your physician. Signatures: Dispatcher [employer] EDMS Keith Crook PA PA jmm Williams, Irene, RN RN Tom Umaña MD MD psych arnp: (The following items were deleted from the chart) 14:01 13:44 06/29/2019 13:44 Discharged to Home. Impression: Cellulitis of the Right Lower iw Extremity. Condition is Stable. Forms are Medication Reconciliation Form, Thank You Letter, Antibiotic Education, Prescription Opioid Use. Follow up: Private Physician; When: 2 - 3 days; Reason: Recheck today's complaints, Continuance of care, Re-evaluation by your physician. Follow up: Lion Tran; When: 2 - 3 days; Reason: Recheck today's complaints, Continuance of care, Re-evaluation by your physician. kasia
[2019-06-29 20:32] VITALS: BP 165/93; TEMP 98; O2SAT 97
== END 2019-06-29 14:01 | disposition home or self-care (01) ==
LOC: ER 11:46
DX: L03.115 Cellulitis of right lower limb (principal); Z88.6 Allergy status to analgesic agent
CPT/HCPCS: 99283

== ENCOUNTER 2021-12-03 15:08 | Emergency (ER) | payer OTHER ==
[2021-12-03] MEDS ORDERED: ACETAMINOPHEN 500 MG TAB ONE (16:05)
[2021-12-03] MEDS ORDERED: AMLODIPINE 10 MG TAB ONE (16:14)
--- NOTE | 2021-12-03 17:01 | ER ---
Nurse's Notes [facility] Name: Nini Carr Age: 55 yrs Sex: Female : 1965 Arrival Date: 12/03/2021 Time: 15:11 Bed Waiting Private MD: Diagnosis: SARS-associated coronavirus as the cause of diseases classified elsewhere;Essential (primary) hypertension Presentation: 12/03 16:01 Chief complaint: Patient states: cough, SOB, headache, nasal discharge since last vg1 night; denies NVD or ABD pain. Coronavirus screen: Vaccine status: Patient reports receiving the 2nd dose of the covid vaccine. Client denies travel out of the [place] in the last 14 days. Ebola Screen: Patient denies exposure to infectious person. Patient denies travel to an Ebola-affected area in the 21 days before illness onset. Initial Sepsis Screen:. Initial Sepsis Screen: Does the patient meet any 2 criteria? Temp <36.0*C (96.8*F)) or > 38.3*C (100.9*F). HR > 90 bpm. Yes Does the patient have a suspected source of infection? No. Patient's initial sepsis screen is negative. Risk Assessment: Do you want to hurt yourself or someone else? Patient reports no desire to harm self or others. Onset of symptoms was December 02, 2021. 16:01 Method Of Arrival: Ambulatory vg1 16:01 Acuity: LIV 3 vg1 Triage Assessment: 16:06 General: Appears uncomfortable, Behavior is cooperative, crying. Pain: Complains of vg1 pain in generalized body Pain currently is 10 out of 10 on a pain scale. Respiratory: Airway is patent Respiratory effort is even, unlabored. Historical: - Allergies: 16:06 Demerol; vg1 - PMHx: 16:06 Diabetes - NIDDM; Hypertension; Thyroid problem; vg1 - Immunization history:: Client reports receiving the 2nd dose of the Covid vaccine. - Social history:: Smoking status: Patient denies any tobacco usage or history of. Screenin:27 Abuse screen: Denies threats or abuse. Nutritional screening: No deficits noted. vg1 Tuberculosis screening: No symptoms or risk factors identified. Fall Risk None identified. Vital Signs: 16:01 BP 190 / 100; Pulse 110; Resp 20; Temp 102.1(O); Pulse Ox 97% on R/A; Weight 122.47 kg; vg1 Height 5 ft. 5 in. (165.10 cm); Pain 10/10; 17:27 BP 178 / 97; Pulse 100; Resp 18; Temp 99.5(O); Pulse Ox 98% on R/A; vg1 16:01 Body Mass Index 44.93 (122.47 kg, 165.10 cm) vg1 ED Course: 15:11 Patient arrived in ED. rg4 15:45 Kwabena Stanley PA is PHCP. jr8 15:45 Deven Vásquez MD is Attending Physician. jr8 16:04 Triage completed. vg1 16:06 Arm band placed on. vg1 16:43 Chest Single View XRAY In Process Unspecified. EDMS 17:27 Patient has correct armband on for positive identification. vg1 17:27 No provider procedures requiring assistance completed. Patient did not have IV access vg1 during this emergency room visit. Administered Medications: 16:07 Drug: Tylenol 1000 mg Route: PO; vg1 17:27 Follow up: Response: Temperature is decreased vg1 16:11 Drug: amLODIPine 10 mg Route: PO; vg1 17:27 Follow up: Response: Blood pressure is lowered vg1 Medication: 17:28 VIS not applicable for this client. vg1 Outcome: 17:00 Discharge ordered by . jr8 17:27 Discharged to home ambulatory. vg1 17:27 Condition: good 17:27 Discharge instructions given to patient, Instructed on discharge instructions, follow up and referral plans. medication usage, Demonstrated understanding of instructions, follow-up care, medications, Prescriptions given X 3. 17:28 Patient left the ED. vg1 Signatures: Dispatcher [employer] EDKY Kwabena Stanley PA PA jrHue Leyva rg4 Marilee San, RN RN vg1
--- NOTE | 2021-12-03 17:01 | EDPHYS ---
Physician Documentation [facility] Name: Nini Carr Age: 55 yrs Sex: Female : 1965 Arrival Date: 12/03/2021 Time: 15:11 Bed Waiting Private MD: ED Physician Deven Vásquez HPI: 12/03 16:26 This 55 yrs old Black Female presents to ER via Ambulatory with complaints of Fever, jr8 Body Aches. 16:26 The patient reports fever, with an emergency department temperature of 102.1 degrees jr8 Fahrenheit. Onset: The symptoms/episode began/occurred acutely, today. Modifying factors: there are no obvious modifying factors. Associated signs and symptoms: Pertinent positives: arthralgias, cough, headache, myalgias, sinus congestion. Severity of symptoms: At their worst the symptoms were moderate in the emergency department the symptoms are unchanged. The patient has not experienced similar symptoms in the past. The patient has not recently seen a physician. Historical: - Allergies: 16:06 Demerol; vg1 - PMHx: 16:06 Diabetes - NIDDM; Hypertension; Thyroid problem; vg1 - Immunization history:: Client reports receiving the 2nd dose of the Covid vaccine. - Social history:: Smoking status: Patient denies any tobacco usage or history of. ROS: 16:45 Constitutional: Positive for body aches, chills, fever. jr8 16:45 ENT: Positive for rhinorrhea, sinus congestion, sore throat. 16:45 Respiratory: Positive for cough, Negative for shortness of breath, sputum production, wheezing. 16:45 Neuro: Positive for headache. 16:45 All other systems are negative. Exam: 16:45 Constitutional: This is a well developed, well nourished patient who is awake, alert, jr8 and in no acute distress. ENT: Nares patent. No nasal discharge, no septal abnormalities noted. Tympanic membranes are normal and external auditory canals are clear. Oropharynx with no redness, swelling, or masses, exudates, or evidence of obstruction, uvula midline. Mucous membranes moist. Neck: Trachea midline, no thyromegaly or masses palpated, and no cervical lymphadenopathy. Supple, full range of motion without nuchal rigidity, or vertebral point tenderness. No Meningismus. Cardiovascular: Regular rate and rhythm with a normal S1 and S2. No gallops, murmurs, or rubs. Normal PMI, no JVD. No pulse deficits. Respiratory: Lungs have equal breath sounds bilaterally, clear to auscultation and percussion. No rales, rhonchi or wheezes noted. No increased work of breathing, no retractions or nasal flaring. Abdomen/GI: Soft, non-tender, with normal bowel sounds. No distension or tympany. No guarding or rebound. No evidence of tenderness throughout. Back: No spinal tenderness. No costovertebral tenderness. Full range of motion. Skin: Warm, dry with normal turgor. Normal color with no rashes, no lesions, and no evidence of cellulitis. MS/ Extremity: Pulses equal, no cyanosis. Neurovascular intact. Full, normal range of motion. Neuro: Awake and alert, GCS 15, oriented to person, place, time, and situation. Cranial nerves II-XII grossly intact. Motor strength 5/5 in all extremities. Sensory grossly intact. Vital Signs: 16:01 BP 190 / 100; Pulse 110; Resp 20; Temp 102.1(O); Pulse Ox 97% on R/A; Weight 122.47 kg; vg1 Height 5 ft. 5 in. (165.10 cm); Pain 10/10; 17:27 BP 178 / 97; Pulse 100; Resp 18; Temp 99.5(O); Pulse Ox 98% on R/A; vg1 16:01 Body Mass Index 44.93 (122.47 kg, 165.10 cm) vg1 MDM: 15:45 Patient medically screened. 8 17:00 Data reviewed: vital signs, nurses notes, lab test result(s), radiologic studies, plain jr8 films, and as a result, I will discharge patient. Data interpreted: Pulse oximetry: on room air is 97 %. Interpretation: normal. Counseling: I had a detailed discussion with the patient and/or guardian regarding: the historical points, exam findings, and any diagnostic results supporting the discharge/admit diagnosis, lab results, radiology results, the need for outpatient follow up, a family practitioner, to return to the emergency department if symptoms worsen or persist or if there are any questions or concerns that arise at home. 12/03 15:38 Order name: COVID-19 SARS RT PCR (Document "Date of Onset" if Symptomatic); Complete iw Time: 17:09 12/03 15:38 Order name: Flu; Complete Time: 16:45 iw 12/03 15:58 Order name: Chest Single View XRAY vg1 Administered Medications: 16:07 Drug: Tylenol 1000 mg Route: PO; vg1 17:27 Follow up: Response: Temperature is decreased vg1 16:11 Drug: amLODIPine 10 mg Route: PO; vg1 17:27 Follow up: Response: Blood pressure is lowered vg1 Disposition Summary: 12/03/21 17:00 Discharge Ordered Location: Home jr8 Problem: new jr8 Symptoms: have improved jr8 Condition: Stable jr8 Diagnosis - SARS-associated coronavirus as the cause of diseases classified elsewhere jr8 - Essential (primary) hypertension jr8 Followup: jr8 - With: Private Physician - When: 1 week - Reason: Recheck today's complaints, Continuance of care, Re-evaluation by your physician Discharge Instructions: - Discharge Summary Sheet jr8 - Hypertension, Adult jr8 - COVID-19 jr8 Forms: - Medication Reconciliation Form jr8 - Thank You Letter jr8 - Antibiotic Education jr8 - Prescription Opioid Use jr8 Prescriptions: - Tessalon Perles 100 mg Oral Capsule - take 1 capsule by ORAL route every 8 hours As needed; 15 capsule; Refills: 0, jr8 Product Selection Permitted - promethazine-DM 6.25-15 mg/5 mL Oral syrup - take 5 milliliter by ORAL route every 4-6 hours As needed as needed, not to jr8 exceed 30 mL in 24 hours; 100 milliliter; Refills: 0, Product Selection Permitted Signatures: Dispatcher [employer] EDKwabena Mclaughlin PA PA jr8 Marilee San RN RN vg1 Corrections: (The following items were deleted from the chart) 16:48 16:45 Constitutional: This is a well developed, well nourished patient who is awake, jr8 alert, and in no acute distress. jr8
[2021-12-03 17:36] VITALS: BP 178/97; TEMP 99.5; O2SAT 98
--- NOTE | 2021-12-03 17:38 | RAD REPORT ---
EXAM DESCRIPTION: Nandini Single View12/03/2021 4:41 pm CLINICAL HISTORY: cough COMPARISON: 2008 FINDINGS: Double density overlies the inferior aspect of the aortic knob. Lungs appear clear. Heart is normal size IMPRESSION: Double density overlies the inferior aspect of the aortic knob. This may represent tortu ous/ectatic aorta, lymphadenopathy or aneurysm. CT chest is recommended
== END 2021-12-03 17:28 | disposition home or self-care (01) ==
LOC: ER 15:08
DX: U07.1 COVID-19 (principal); I10 Essential (primary) hypertension; E11.9 Type 2 diabetes mellitus without complications; Z88.5 Allergy status to narcotic agent
CPT/HCPCS: 87804 ×2; 71045; 99283; U0003

== ENCOUNTER 2022-08-25 10:33 | Emergency (ER) | payer OTHER ==
[2022-08-25] MEDS ORDERED: CETIRIZINE HCL 5 MG TABLET ONE (11:14)
[2022-08-25 13:30] LABS: Urine Blood Negative (Negative); Urine Glucose Negative (Negative); Urine Protein Negative (Negative); Urine Specific Gravity 1.015 (1.005-1.030); Urine pH 7.5 (5.0-7.0)
--- NOTE | 2022-08-25 15:04 | EDPHYS ---
Physician Documentation [facility] Name: Nini Carr Age: 56 yrs Sex: Female : 1965 Arrival Date: 08/25/2022 Time: 10:38 Bed 11 Private MD: ED Physician Eben Smiley HPI: 08/25 10:51 This 56 yrs old Black Female presents to ER via Unassigned with complaints of Allergic bs3 Reaction, Urinary Problem. 10:51 56-year-old female history of chronic constipation presents with 2 complaints she notes bs3 pain with urination and she notes itching in her lower extremities after taking B-17 herbs parasite and warm detox she states that she thinks she has a parasite because ever and always has parasites she denies any diarrhea or visualized parasites in her stool she denies any fevers chills nausea vomiting or abdominal pain she notes that she has been taking these medications for several weeks and her itchiness in her legs started 2 weeks ago she has not tried anything for it in addition she states that she started getting pain with urination without fevers back pain or anything else bothering her. 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 - Social history:: Smoking status: Patient denies any tobacco usage or history of. ROS: 10:51 Constitutional: Negative for fever, chills bs3 10:51 All other systems are negative. Exam: 10:51 Constitutional: This is a well developed, well nourished patient who is awake, alert, bs3 and in no acute distress. Head/Face: Normocephalic, atraumatic. Eyes: Pupils equal round and reactive to light, extra-ocular motions intact. Lids and lashes normal. Chest/axilla: Normal chest wall appearance and motion. Nontender with no deformity. No lesions are appreciated. Cardiovascular: Regular rate and rhythm with a normal S1 and S2. symmetric pulses in upper extremities Respiratory: Lungs have equal breath sounds bilaterally, clear to auscultation, no respiratory distress Abdomen/GI: Soft, non-tender, no rebound or guarding MS/ Extremity: Pulses equal, no cyanosis. Neurovascular intact. Full, normal range of motion. No significant erythema or rash Neuro: Awake and alert, GCS 15, oriented to person, place, time, and situation. Cranial nerves II-XII grossly intact. Motor strength 5/5 in all extremities. Sensory grossly intact. Psych: Awake, alert, with orientation to person, place and time. Behavior, mood, and affect are within normal limits. Vital Signs: 11:03 Pulse 72; Resp 17; Temp 98.0; Pulse Ox 98% ; Weight 97.52 kg; Height 5 ft. 6 in. ap3 (167.64 cm); Pain 0/10; 13:15 BP 175 / 106; Pulse 78; Resp 18; Pulse Ox 100% on R/A; eh3 14:15 BP 155 / 94; Pulse 70; Resp 18; Pulse Ox 100% on R/A; eh3 15:15 BP 161 / 91; Pulse 72; Resp 17; Pulse Ox 100% on R/A; eh3 11:03 Body Mass Index 34.70 (97.52 kg, 167.64 cm) ap3 MDM: 10:39 Patient medically screened. bs3 15:01 Data reviewed: vital signs, nurses notes. ED course: ua neg, pt feeling better, vitals bs3 normal, will dc home. 08/25 13:31 Order name: Urine Dipstick-Ancillary; Complete Time: 15:01 EDMS 08/25 10:49 Order name: Urine Dipstick-Ancillary (obtain specimen); Complete Time: 13:29 bs3 Administered Medications: 11:11 Drug: ZyrTEC - Cetirizine 10 mg Route: PO; ap3 13:29 Follow up: Response: No change in condition eh3 Disposition Summary: 08/25/22 15:03 Discharge Ordered Location: Home bs3 Problem: new bs3 Symptoms: are resolved bs3 Condition: Stable bs3 Diagnosis - Allergic contact dermatitis due to drugs in contact with skin bs3 Followup: bs3 - With: Private Physician - When: Today - Reason: If symptoms return Discharge Instructions: - Discharge Summary Sheet bs3 - Allergies, Adult bs3 - Contact Dermatitis bs3 Forms: - Medication Reconciliation Form bs3 - Thank You Letter bs3 - Antibiotic Education bs3 - Prescription Opioid Use bs3 Prescriptions: - Benadryl 25 mg Oral Capsule - take 1 capsule by ORAL route every 6 hours As needed; 30 tablet; Refills: 0, bs3 Product Selection Permitted Signatures: Virginia Nguyen RN RN ap3 Eben Smiley MD MD bs3 Dorothy uHang RN eh3
--- NOTE | 2022-08-25 15:04 | ER ---
Nurse's Notes [facility] Name: Nini Carr Age: 56 yrs Sex: Female : 1965 Arrival Date: 08/25/2022 Time: 10:38 Bed 11 Private MD: Diagnosis: Allergic contact dermatitis due to drugs in contact with skin Presentation: 08/25 11:03 Chief complaint: Patient states: she has been taking some pills for parasite removal ap3 that she got from [facility], and started having a break out on her skin approx 2 weeks ago and it has started spreading. Medication is [id number] Parasite \T\ Worm detox. Coronavirus screen: At this time, the client does not indicate any symptoms associated with coronavirus-19. Ebola Screen: No symptoms or risks identified at this time. Onset: The symptoms/episode began/occurred gradually, 2 week(s) ago. Anaphylaxis evaluation, no signs or symptoms of anaphylaxis were noted. Initial Sepsis Screen: Does the patient meet any 2 criteria? No. Patient's initial sepsis screen is negative. Does the patient have a suspected source of infection? No. Patient's initial sepsis screen is negative. Risk Assessment: Do you want to hurt yourself or someone else? Patient reports no desire to harm self or others. Onset of symptoms was August 11, 2022. 11:03 Method Of Arrival: Ambulatory ap3 11:03 Acuity: LIV 3 ap3 Triage Assessment: 11:07 General: Appears in no apparent distress. Behavior is calm, cooperative, appropriate ap3 for age. Pain: Denies pain. Neuro: Level of Consciousness is awake, alert, obeys commands, Oriented to person, place, time, situation. Cardiovascular: Patient's skin is warm and dry. Respiratory: Airway is patent Respiratory effort is even, unlabored, Respiratory pattern is regular, symmetrical. Derm: Reports itching. 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 - Social history:: Smoking status: Patient denies any tobacco usage or history of. Screenin:07 [facility] ED Fall Risk Assessment (Adult) History of falling in the last 3 months, ap3 including since admission No falls in past 3 months (0 pts). Abuse screen: Denies threats or abuse. Nutritional screening: No deficits noted. Tuberculosis screening: No symptoms or risk factors identified. Assessment: 13:15 General: Appears in no apparent distress. uncomfortable, Behavior is calm, cooperative, eh3 appropriate for age. Pain: Complains of pain in pelvis Pain does not radiate. Quality of pain is described as stinging, Pain began 2 weeks ago. Neuro: Level of Consciousness is awake, alert, obeys commands, Oriented to person, place, time, situation. Cardiovascular: Capillary refill < 3 seconds Patient's skin is warm and dry. Respiratory: Airway is patent Respiratory effort is even, unlabored, Respiratory pattern is regular, symmetrical, Breath sounds are clear bilaterally. GI: Abdomen is round non-distended, Reports constipation. : Urine is clear, Reports burning with urination, urgency, since 2 weeks ago. EENT: No deficits noted. Derm: Rash noted that is itchy, raised, on right leg and left leg. Musculoskeletal: No signs and/or symptoms reported regarding the musculoskeletal system. Circulation, motion, and sensation intact. Range of motion: intact in all extremities. 14:15 Reassessment: Patient appears in no apparent distress at this time. Patient and/or 3 family updated on plan of care and expected duration. Pain level reassessed. Patient is alert, oriented x 3, equal unlabored respirations, skin warm/dry/pink. 15:15 Reassessment: Patient appears in no apparent distress at this time. Patient and/or eh3 family updated on plan of care and expected duration. Pain level reassessed. Patient is alert, oriented x 3, equal unlabored respirations, skin warm/dry/pink. Vital Signs: 11:03 Pulse 72; Resp 17; Temp 98.0; Pulse Ox 98% ; Weight 97.52 kg; Height 5 ft. 6 in. ap3 (167.64 cm); Pain 0/10; 13:15 BP 175 / 106; Pulse 78; Resp 18; Pulse Ox 100% on R/A; eh3 14:15 BP 155 / 94; Pulse 70; Resp 18; Pulse Ox 100% on R/A; eh3 15:15 BP 161 / 91; Pulse 72; Resp 17; Pulse Ox 100% on R/A; eh3 11:03 Body Mass Index 34.70 (97.52 kg, 167.64 cm) ap3 ED Course: 10:38 Patient arrived in ED. rg4 10:39 Eben Smiley MD is Attending Physician. bs3 11:06 Triage completed. ap3 11:07 Arm band placed on left wrist. ap3 13:15 Patient has correct armband on for positive identification. Bed in low position. Call eh3 light in reach. Side rails up X2. Pulse ox on. NIBP on. Door closed. Noise minimized. Lights dimmed. Warm blanket given. 13:24 Dorothy Huang, RN is Primary Nurse. eh3 15:18 No provider procedures requiring assistance completed. Patient did not have IV access eh3 during this emergency room visit. Administered Medications: 11:11 Drug: ZyrTEC - Cetirizine 10 mg Route: PO; ap3 13:29 Follow up: Response: No change in condition eh3 Medication: 11:08 VIS not applicable for this client. ap3 Outcome: 15:03 Discharge ordered by . bs3 15:18 Discharged to home ambulatory. eh3 15:18 Condition: stable 15:18 Discharge instructions given to patient, Instructed on discharge instructions, follow up and referral plans. medication usage, Demonstrated understanding of instructions, follow-up care, medications, Prescriptions given X 1. 15:18 Patient left the ED. eh3 Signatures: Hue San rg4 Virginia Nguyen RN RN ap3 Dorothy Huang RN RN 3 Eben Smiley MD MD bs3
[2022-08-25 15:52] VITALS: TEMP 98
[2022-08-25 15:53] VITALS: O2SAT 100
[2022-08-25 15:56] VITALS: BP 161/91
== END 2022-08-25 15:18 | disposition home or self-care (01) ==
LOC: ER 10:33
DX: L23.3 Allergic contact dermatitis due to drugs in contact with skin (principal); E11.9 Type 2 diabetes mellitus without complications; I10 Essential (primary) hypertension; Z88.5 Allergy status to narcotic agent
CPT/HCPCS: 81003

== ENCOUNTER 2023-03-12 12:20 | Emergency (ER) | payer OTHER ==
--- NOTE | 2023-03-12 13:12 | ER ---
Nurse's Notes [facility] Name: Nini Carr Age: 57 yrs Sex: Female : 1965 Arrival Date: 03/12/2023 Time: 12:20 Bed IW1 Private MD: Diagnosis: SARS-associated coronavirus as the cause of diseases classified elsewhere;Influenza due to identified novel influenza A virus-B Presentation: 03/12 12:26 Chief complaint: Patient states: "Last night I started having body aches, cough, fever, mb9 and headache". Coronavirus screen: Vaccine status: Patient reports receiving the 2nd dose of the covid vaccine. Ebola Screen: No symptoms or risks identified at this time. Initial Sepsis Screen: Does the patient meet any 2 criteria? No. Patient's initial sepsis screen is negative. Does the patient have a suspected source of infection? No. Patient's initial sepsis screen is negative. Risk Assessment: Do you want to hurt yourself or someone else? Patient reports no desire to harm self or others. Onset of symptoms was 2022. 12:26 Method Of Arrival: Ambulatory 9 12:26 Acuity: LIV 4 mb9 Triage Assessment: 12:30 Headache History: The patient has had previous headaches and this one is similar to mb9 previous episodes. General: Appears in no apparent distress. Behavior is calm, cooperative. Pain: Complains of pain in whole body Pain does not radiate. Quality of pain is described as aching, Pain began suddenly. Neuro: Kinsey Agitation-Sedation Scale (RASS): 0 - Alert and Calm Level of Consciousness is awake, alert, obeys commands, Oriented to person, place, time, situation, Appropriate for age. Cardiovascular: Patient's skin is warm and dry. Respiratory: Reports cough that is Airway is patent Respiratory effort is even, unlabored, Respiratory pattern is regular, symmetrical. Respiratory: Breath sounds are clear bilaterally. Derm: Skin is pink, warm \\T\\ dry. Musculoskeletal: Range of motion: intact in all extremities. Historical: - Allergies: 12:27 Demerol; mb9 - Home Meds: 12:28 None [Active]; mb9 - PMHx: 12:27 Diabetes - NIDDM; Hypertension; Thyroid problem; mb9 - PSHx: 12:28 None; mb9 - Immunization history:: Adult Immunizations up to date. - Social history:: Smoking status: Patient denies any tobacco usage or history of. Screenin:06 [facility] ED Fall Risk Assessment (Adult) History of falling in the last 3 months, mb9 including since admission No falls in past 3 months (0 pts) Confusion or Disorientation No (0 pts) Intoxicated or Sedated No (0 pts) Impaired Gait No (0 pts) Mobility Assist Device Used No (0 pt) Altered Elimination No (0 pt) Score/Fall Risk Level 0 - 2 = Low Risk Oriented to surroundings, Maintained a safe environment, Educated pt \\T\\ family on fall prevention, incl call for assistance when getting out of bed. Abuse screen: Denies threats or abuse. Nutritional screening: No deficits noted. Tuberculosis screening: No symptoms or risk factors identified. Assessment: 12:31 Reassessment: see triage assessment. mb9 Vital Signs: 12:26 BP 165 / 84; Pulse 95; Resp 18; Temp 97.5(O); Pulse Ox 98% on R/A; Weight 122.47 kg; mb9 Height 5 ft. 6 in. ; Pain 10/10; 12:26 Body Mass Index 43.58 (122.47 kg, 167.64 cm) mb9 12:26 Pain Scale: Adult mb9 ED Course: 12:21 Patient arrived in ED. ts1 12:24 [facility]C [facility] kb 12:24 Pedro Caldwell MD is Attending Physician. kb 12:27 Triage completed. mb9 12:27 Arm band placed on. mb9 13:06 Liss Wilson, RN is Primary Nurse. mb9 13:06 Call light in reach. mb9 13:06 No provider procedures requiring assistance completed. Patient did not have IV access mb9 during this emergency room visit. Administered Medications: No medications were administered Medication: 13:06 VIS not applicable for this client. mb9 Outcome: 13:12 Discharge ordered by . kb 13:13 Discharged to home ambulatory. mb9 13:13 Condition: stable 13:13 Discharge instructions given to patient, Instructed on discharge instructions, follow up and referral plans. Demonstrated understanding of instructions, follow-up care, medications, Prescriptions given X 1. 13:16 Patient left the ED. mb9 Signatures: Hannah Berry FNP-C FNP-Liss Thomash, RN RN mb9 Dia Cardenas, MICHELLE PAS ts1 Corrections: (The following items were deleted from the chart) 12:29 12:26 Pulse 95bpm; Resp 18bpm; Pulse Ox 98% RA; Temp 97.5F Oral; 122.47 kg; Height 5 mb9 ft. 6 in.; BMI: 43.5; Pain 10, Adult; mb9
--- NOTE | 2023-03-12 13:13 | EDPHYS ---
Physician Documentation [facility] Name: Nini Carr Age: 57 yrs Sex: Female : 1965 Arrival Date: 03/12/2023 Time: 12:20 Bed IW1 Private MD: ED Physician Pedro Caldwell HPI: 03/12 13:40 This 57 yrs old Black Female presents to ER via Ambulatory with complaints of Body kb aches, Headache, Fever. 13:40 The patient or guardian reports cough, that is intermittent, described as mild, flu kb symptoms, low-grade fever, myalgias. Onset: The symptoms/episode began/occurred last night. Severity of symptoms: At their worst the symptoms were moderate, in the emergency department the symptoms are unchanged. Modifying factors: The symptoms are alleviated by nothing, the symptoms are aggravated by nothing. Associated signs and symptoms: Pertinent positives: fever, rhinorrhea. The patient has not experienced similar symptoms in the past. The patient has not recently seen a physician. Historical: - Allergies: 12:27 Demerol; mb9 - Home Meds: 12:28 None [Active]; mb9 - PMHx: 12:27 Diabetes - NIDDM; Hypertension; Thyroid problem; mb9 - PSHx: 12:28 None; mb9 - Immunization history:: Adult Immunizations up to date. - Social history:: Smoking status: Patient denies any tobacco usage or history of. ROS: 13:30 Abdomen/GI: Negative for abdominal pain, nausea, vomiting, diarrhea, and constipation. kb 13:30 Constitutional: Positive for body aches, chills, fatigue, fever, malaise. 13:30 ENT: Positive for rhinorrhea, sinus congestion. 13:30 Respiratory: Positive for cough. 13:30 Neuro: Positive for headache. 13:30 All other systems are negative. Exam: 13:30 Constitutional: This is a well developed, well nourished patient who is awake, alert, kb and in no acute distress. Head/Face: Normocephalic, atraumatic. ENT: Moist Mucous membranes Cardiovascular: Regular rate and rhythm with a normal S1 and S2. No gallops, murmurs, or rubs. No pulse deficits. Respiratory: Respirations even and unlabored. No increased work of breathing. Talking in full sentences Skin: Warm, dry with normal turgor. Normal color. MS/ Extremity: Pulses equal, no cyanosis. Neurovascular intact. Full, normal range of motion. Neuro: Awake and alert, GCS 15, oriented to person, place, time, and situation. Moves all extremities. Normal gait. Vital Signs: 12:26 BP 165 / 84; Pulse 95; Resp 18; Temp 97.5(O); Pulse Ox 98% on R/A; Weight 122.47 kg; mb9 Height 5 ft. 6 in. ; Pain 10/10; 12:26 Body Mass Index 43.58 (122.47 kg, 167.64 cm) mb9 12:26 Pain Scale: Adult mb9 MDM: 12:25 Patient medically screened. kb 13:40 Differential diagnosis: flu, covid, uri. Data reviewed: vital signs, nurses notes. kb Counseling: I had a detailed discussion with the patient and/or guardian regarding the historical points, exam findings, and any diagnostic results supporting the discharge/admit diagnosis, lab results, the need for outpatient follow up, a family practitioner, to return to the emergency department if symptoms worsen or persist or if there are any questions or concerns that arise at home. 03/12 12:25 Order name: Flu; Complete Time: 13:11 kb 03/12 12:25 Order name: SARS-COV-2 RT PCR; Complete Time: 13:11 kb Administered Medications: No medications were administered Disposition Summary: 03/12/23 13:12 Discharge Ordered Location: Home kb Condition: Stable kb Diagnosis - SARS-associated coronavirus as the cause of diseases classified elsewhere kb - Influenza due to identified novel influenza A virus - B kb Followup: kb - With: Emergency Department - When: As needed - Reason: Worsening of condition Followup: kb - With: Private Physician - When: 2 - 3 days - Reason: Recheck today's complaints, Continuance of care, Re-evaluation by your physician Discharge Instructions: - Discharge Summary Sheet kb - Influenza, Adult, [id number] kb - COVID-19 kb - Viral Illness, Adult kb Forms: - Medication Reconciliation Form kb - Thank You Letter kb - Antibiotic Education kb - Prescription Opioid Use kb - Patient Portal Instructions kb - Leadership Thank You Letter kb Prescriptions: - Tamiflu 75 mg Oral Capsule - take 1 tablet by ORAL route every 12 hours for 5 days; 10 tablet; Refills: 0, kb Product Selection Permitted Signatures: Dispatcher [employer] Hannah Panchal, REGIONAL TRANSPORTATION MANAGER-C REGIONAL TRANSPORTATION MANAGER-Liss Thomas, RN RN mb9
[2023-03-12 13:30] VITALS: BP 165/84; TEMP 97.5; O2SAT 98
== END 2023-03-12 13:16 | disposition home or self-care (01) ==
LOC: ER 12:20
DX: U07.1 COVID-19 (principal); J10.1 Influenza due to other identified influenza virus with other respiratory manifestations; I10 Essential (primary) hypertension; Z88.5 Allergy status to narcotic agent
CPT/HCPCS: 87635; 87804; 99283